=== PATIENT | male | born 1985 | race African-American/Black ===

== ENCOUNTER 2016-11-29 21:01 | Emergency (ER) | payer SELFPAY ==
[~2016-11-29] VITALS: Ht 182.9 cm; Wt 95.5 kg
[2016-11-29] MEDS ORDERED: LORAZEPAM 2MG/ML CPJ IM STA (23:42)
[2016-11-29] MEDS ORDERED: SODIUM CHLORIDE 0.9% 1,000 ML IV ONE (23:42)
[2016-11-29] MEDS ORDERED: HALOPERIDOL LACTATE 5MG/ML VIAL IM STA (23:42)
[2016-11-29] MEDS ORDERED: DIPHENHYDRAMINE 50MG/ML VIAL IM STA (23:42)
[2016-11-30 00:04] LABS: BASOPHILS % 0.3 % (0.0-2.0); EOSINOPHILS % 1.9 % (0.0-5.0); HEMATOCRIT. 47.7 % (42.0-52.0); HEMOGLOBIN. 16.2 g/dL (14.0-18.0); LYMPHOCYTES % 22.3 % (20.0-50.0); MEAN CORPUSCULAR HEMOGLOBIN 32.7 pg (28.0-32.0); MEAN CORPUSCULAR VOLUME 96.2 fL (80.0-94.0); MEAN PLATELET VOLUME 7.9 fl (7.4-10.4); MONOCYTES % 5.3 % (2.0-8.0); NEUTROPHILS % 70.2 % (40.0-76.0); PLATELET 166 x1000/uL (130-400); RED BLOOD CELL COUNT 4.95 mill/uL (4.7-6.1); RED CELL DISTRIBUTION WIDTH 14.2 % (11.6-14.6)
[2016-11-30 00:09] LABS: CHLORIDE 103 mEq/L (98-107)
[2016-11-30 00:17] LABS: CARBON DIOXIDE 27 mEq/L (21-32); CREATINE KINASE 681 IU/L (39-308); ETHANOL BLOOD 113 mg/dL
[2016-11-30 09:10] VITALS: BP 111/63
== END 2016-11-30 09:30 | disposition home or self-care (01) ==
LOC: ER 21:16
DX: F10.129 Alcohol abuse with intoxication, unspecified (principal); E87.2 Acidosis; Y90.5 Blood alcohol level of 100-119 mg/100 ml
CPT/HCPCS: 36415; 70450; 71010; 80053; 80307; 80329; 82550; 82962; 83605; 85025; 93005; 96360; 96361; 96372; 99285; G0482; J1200; J1630; J2060; Z7610; J7030